=== PATIENT | male | born 1990 | race Caucasian/White ===

== ENCOUNTER 2019-02-12 21:08 | Emergency (ER) | payer BC, OTHER ==
[~2019-02-12] VITALS: Ht 167.6 cm; Wt 110.9 kg
[2019-02-12 21:41] VITALS: BP 154/100
[2019-02-13] MEDS ORDERED: ketorolac trometh inj. 60 MG/2 ML VIAL IM ONE (00:05)
[2019-02-13] MEDS ORDERED: acetaminophen 325mg tablet PO ONE (00:05)
[2019-02-13] MEDS ORDERED: HYDR-3965 PO (00:05)
[2019-02-13] MEDS ORDERED: HYDROcodone/acetaminophen 5mg/325mg tablet PO ONE (00:05)
[2019-02-13] MEDS ORDERED: CYCL-1 PO (00:05)
== END 2019-02-13 00:59 | disposition home or self-care (01) ==
LOC: ER 21:08
DX: M54.5 Low back pain (principal); M54.6 Pain in thoracic spine; R51 Headache; R20.2 Paresthesia of skin; Z79.899 Other long term (current) drug therapy; V43.53XA Car driver injured in collision with pick-up truck in traffic accident, initial encounter; Y93.89 Activity, other specified; Y92.488 Other paved roadways as the place of occurrence of the external cause; Y99.8 Other external cause status
CPT/HCPCS: 96372; 99283; J1885